=== PATIENT | male | born 1960 | race Caucasian/White ===

== ENCOUNTER 2020-07-31 10:09 | Day surgery (SDC) | payer OTHER ==
[~2020-07-31] VITALS: Ht 167.6 cm; Wt 108.9 kg
[2020-07-31 10:45] VITALS: BP 127/73
[2020-07-31 15:35] VITALS: BP 134/80
== END 2020-07-31 15:20 | disposition home or self-care (01) ==
LOC: DS 10:09 → OR 11:30 → DS 15:20
PROVIDERS: ATTEND Radiology Vascular & Interventional Radiology
DX: E11.22 Type 2 diabetes mellitus with diabetic chronic kidney disease (principal); I12.0 Hypertensive chronic kidney disease with stage 5 chronic kidney disease or end stage renal disease; N18.6 End stage renal disease; F32.9 Major depressive disorder, single episode, unspecified; F41.9 Anxiety disorder, unspecified; M19.90 Unspecified osteoarthritis, unspecified site; Z99.2 Dependence on renal dialysis; Z79.4 Long term (current) use of insulin; Z79.899 Other long term (current) drug therapy
CPT/HCPCS: J1644; J2001; J2250; J3010; Q0092; Q9967